=== PATIENT | female | born 1935 | race Caucasian/White ===

== ENCOUNTER 2016-11-17 07:35 | Inpatient (IN) | payer MEDICARE, OTHER ==
[~2016-11-17] VITALS: Ht 157.5 cm; Wt 85.8 kg
[2016-11-17 08:07] LABS: Basophils # (auto) 0 uL; Basophils % (auto) 0.8 % (0.0-2.0); CONDITION Y; Eosinophils # (auto) 0.2 uL; Eosinophils % (auto) 4.3 % (0.0-7.0); Hematocrit 41.2 % (36.0-46.0); Hemoglobin 14.1 g/dL (12.2-16.2); Lymphocytes # (auto) 1.6 uL; Lymphocytes % (auto) 35.4 % (10.0-50.0); Mean Corpuscular Hgb Conc. 34.2 g/dL (32.0-36.0); Mean Corpuscular Volume 90.7 fL (80.0-100.0); Mean Platelet Volume 7.6 fL (7.4-10.4); Monocytes # (auto) 0.3 uL; Monocytes % (auto) 7.6 % (0.0-12.0); Neutrophils # (auto) 2.3 uL; Neutrophils % (auto) 51.9 % (37.0-80.0); Platelet Count (auto) 297 10^3/uL (140-450); White Blood Cell 4.5 10^3/uL (4.4-10.8)
[2016-11-17 08:23] LABS: Albumin 3.4 g/dL (3.4-5.0); BUN/Creatinine Ratio 13.9; Calcium 8.3 mg/dL (8.5-10.1); Potassium 4.2 mmol/L (3.5-5.1)
[2016-11-17 08:26] LABS: Bilirubin, Total 0.5 mg/dL (0.2-1.0); Total Protein 7.4 g/dL (6.4-8.2)
[2016-11-17 08:45] LABS: INR 3.55 (0.9-1.15); Partial Thromboplastin Time 42.6 sec (22.64-33.71)
[2016-11-17 08:46] LABS: Prothrombin Time 39.2 sec (9.37-12.3)
[2016-11-17 10:40] LABS: B-Type Natriuretic Peptide 128.21 pg/mL (0-100)
[2016-11-17] MEDS ORDERED: LACTULOSE 20Gm/30ML SOLN PO PRN (10:45)
[2016-11-17] MEDS ORDERED: MORPHINE SULF INJ 2 MG/ML SYRINGE 1ML IV PRN ×2 (10:45→17:30)
[2016-11-17] MEDS ORDERED: NITROGLYCERIN 0.4 MG SL TAB SL PRN (10:45)
[2016-11-17] MEDS ORDERED: CLINDAMYCIN 600MG IV 50 ML IV ONE (10:45)
[2016-11-17] MEDS ORDERED: BACL10TA PO (10:52)
[2016-11-17] MEDS ORDERED: BACLOFEN 10 MG TAB PO ONE (11:30)
[2016-11-17 11:39] LABS: Cholesterol 198 mg/dL (< 200); HDL Cholesterol 54 mg/dL (40-59); LDL Cholesterol 120 mg/dL (< 100); Triglycerides 136 mg/dL (< 150)
[2016-11-17 12:15] VITALS: BP 140/70
[2016-11-17] MEDS ORDERED: TRAZ100T2 PO (12:29)
[2016-11-17] MEDS ORDERED: POTA10TA34 PO (12:29)
[2016-11-17] MEDS ORDERED: SUMA50TA2 PO (12:29)
[2016-11-17] MEDS ORDERED: WARF4TAB31 PO (12:29)
[2016-11-17] MEDS ORDERED: HYDR-4663 PO (12:29)
[2016-11-17] MEDS ORDERED: LEV100T PO (12:29)
[2016-11-17] MEDS ORDERED: PANT40TA2 PO (12:29)
[2016-11-17] MEDS ORDERED: FURO40TA PO (12:29)
[2016-11-17] MEDS ORDERED: PRA25T PO (12:29)
[2016-11-17 12:40] VITALS: BP 140/70
[2016-11-17 17:12] VITALS: BP 139/82
[2016-11-17] MEDS ORDERED: FUROSEMIDE 40 MG/4 ML VIAL IV ONE (17:15)
[2016-11-17] MEDS ORDERED: cefTRIAXone 1GM/50ML D5W 50 ML IV ONE (17:15)
[2016-11-17] MEDS ORDERED: POTASSIUM CHL 20 Meq TABLET PO ONE (17:15)
[2016-11-17] MEDS ORDERED: PANTOPRAZOLE 40 MG TAB PO ONE (17:30)
[2016-11-17] MEDS ORDERED: ONDANSETRON HCL 4 MG/2 ML VIAL IV PRN (17:30)
[2016-11-17] MEDS: CLINDAMYCIN 600MG IV 50 ML IV SCH (19:00)
[2016-11-17] MEDS: traZODone HCL 50 MG TAB PO SCH (21:35)
[2016-11-17] MEDS: PRAMIPEXOLE DIHYDROCHLORIDE MO 0.25 MG TAB PO SCH (21:36)
[2016-11-17] MEDS: diphenhdrAMINE HCL 25 MG CAP PO PRN (21:36)
[2016-11-17] MEDS: HYDROCORTISONE 2.5% TOPICAL CREAM 30GM TUBE TOP SCH (21:36)
[2016-11-17 22:26] VITALS: BP 125/54
[2016-11-18] MEDS: CLINDAMYCIN 600MG IV 50 ML IV SCH ×3 (03:15→19:00)
[2016-11-18 05:09] VITALS: BP 106/57
[2016-11-18] MEDS: HYDROcodone-ACET 5/325MG TAB PO PRN (05:52)
[2016-11-18] MEDS: LEVOTHYROXINE SODIUM 88 MCG TAB PO SCH (06:36)
[2016-11-18 07:17] LABS: Basophils # (auto) 0 uL; Basophils % (auto) 0.8 % (0.0-2.0); CONDITION Y; Eosinophils # (auto) 0.3 uL; Eosinophils % (auto) 5.3 % (0.0-7.0); Hematocrit 42.2 % (36.0-46.0); Hemoglobin 14.5 g/dL (12.2-16.2); Lymphocytes # (auto) 2.1 uL; Lymphocytes % (auto) 43.3 % (10.0-50.0); Mean Corpuscular Hemoglobin 31.3 pg (28.0-32.0); Mean Corpuscular Hgb Conc. 34.3 g/dL (32.0-36.0); Mean Corpuscular Volume 91.2 fL (80.0-100.0); Mean Platelet Volume 8.2 fL (7.4-10.4); Monocytes # (auto) 0.5 uL; Monocytes % (auto) 9.4 % (0.0-12.0); Neutrophils % (auto) 41.2 % (37.0-80.0); Platelet Count (auto) 310 10^3/uL (140-450); Red Cell Distribution Width 15.2 % (11.6-16.0); White Blood Cell 4.9 10^3/uL (4.4-10.8)
[2016-11-18 07:29] LABS: INR 2.89 (0.9-1.15); Partial Thromboplastin Time 41.5 sec (22.64-33.71)
[2016-11-18 07:32] LABS: Prothrombin Time 31.8 sec (9.37-12.3)
[2016-11-18 07:56] LABS: BUN/Creatinine Ratio 19.5; Potassium 4.5 mmol/L (3.5-5.1)
[2016-11-18 08:30] VITALS: BP 123/57
[2016-11-18 09:06] LABS: Urine RBC None Seen /hpf (0 - 4)
[2016-11-18 09:20] LABS: Urine Bilirubin Negative (Negative); Urine Blood Negative /uL (Negative); Urine Color Yellow (Yellow); Urine Glucose Normal (Normal); Urine Ketone Negative (Negative); Urine Nitrite Negative (Negative); Urine Squamous Epithelial Cell FEW /hpf (<5); Urine Urobilinogen Normal (Negative)
[2016-11-18] MEDS: cefTRIAXone 1GM/50ML D5W 50 ML IV SCH (09:55)
[2016-11-18] MEDS: POTASSIUM CHL 20 Meq TABLET PO SCH (09:56)
[2016-11-18] MEDS: PANTOPRAZOLE 40 MG TAB PO SCH (09:56)
[2016-11-18] MEDS: BACLOFEN 10 MG TAB PO SCH (09:57)
[2016-11-18] MEDS: HYDROCORTISONE 2.5% TOPICAL CREAM 30GM TUBE TOP SCH ×2 (09:58→21:59)
[2016-11-18] MEDS ORDERED: FUROSEMIDE 40 MG TAB PO SCH (10:00)
[2016-11-18 12:30] VITALS: BP 108/58
[2016-11-18 17:34] VITALS: BP 151/96
[2016-11-18 21:49] VITALS: BP 135/60
[2016-11-18] MEDS: traZODone HCL 50 MG TAB PO SCH (21:58)
[2016-11-18] MEDS: PRAMIPEXOLE DIHYDROCHLORIDE MO 0.25 MG TAB PO SCH (21:59)
[2016-11-19] MEDS: diphenhdrAMINE HCL 25 MG CAP PO PRN ×2 (01:51→23:26)
[2016-11-19] MEDS: CLINDAMYCIN 600MG IV 50 ML IV SCH ×3 (02:38→18:30)
[2016-11-19 05:00] VITALS: BP 145/58
[2016-11-19 06:22] LABS: INR 2.14 (0.9-1.15); Partial Thromboplastin Time 36.3 sec (22.64-33.71); Prothrombin Time 23.5 sec (9.37-12.3)
[2016-11-19] MEDS: LEVOTHYROXINE SODIUM 88 MCG TAB PO SCH (06:48)
[2016-11-19 08:00] VITALS: BP 176/66
[2016-11-19] MEDS: cefTRIAXone 1GM/50ML D5W 50 ML IV SCH (08:48)
[2016-11-19 09:00] VITALS: BP 176/66
[2016-11-19] MEDS: PANTOPRAZOLE 40 MG TAB PO SCH (09:20)
[2016-11-19] MEDS: HYDROCORTISONE 2.5% TOPICAL CREAM 30GM TUBE TOP SCH ×2 (09:20→22:22)
[2016-11-19] MEDS: BACLOFEN 10 MG TAB PO SCH (09:20)
[2016-11-19] MEDS: POTASSIUM CHL 20 Meq TABLET PO SCH (09:20)
[2016-11-19 13:00] VITALS: BP 127/54
[2016-11-19 17:00] VITALS: BP 102/58
[2016-11-19] MEDS ORDERED: WARFARIN SODIUM 2.5 MG TAB PO ONE (17:00)
[2016-11-19 22:00] VITALS: BP 138/57
[2016-11-19] MEDS: HYDROcodone-ACET 5/325MG TAB PO PRN (22:22)
[2016-11-19] MEDS: PRAMIPEXOLE DIHYDROCHLORIDE MO 0.25 MG TAB PO SCH (22:22)
[2016-11-19] MEDS: traZODone HCL 50 MG TAB PO SCH (22:22)
[2016-11-20] MEDS: CLINDAMYCIN 600MG IV 50 ML IV SCH ×2 (03:20→10:32)
[2016-11-20 05:00] VITALS: BP 131/64
[2016-11-20] MEDS: LEVOTHYROXINE SODIUM 88 MCG TAB PO SCH (06:38)
[2016-11-20] MEDS: HYDROcodone-ACET 5/325MG TAB PO PRN (06:39)
[2016-11-20 07:12] LABS: INR 1.58 (0.9-1.15); Partial Thromboplastin Time 32.2 sec (22.64-33.71)
[2016-11-20 07:19] LABS: Prothrombin Time 17.3 sec (9.37-12.3)
[2016-11-20 08:00] VITALS: BP 131/64
[2016-11-20] MEDS: cefTRIAXone 1GM/50ML D5W 50 ML IV SCH (08:17)
[2016-11-20 09:00] VITALS: BP 130/59
[2016-11-20] MEDS: POTASSIUM CHL 20 Meq TABLET PO SCH (09:22)
[2016-11-20] MEDS: PANTOPRAZOLE 40 MG TAB PO SCH (09:22)
[2016-11-20] MEDS: HYDROCORTISONE 2.5% TOPICAL CREAM 30GM TUBE TOP SCH (09:23)
[2016-11-20] MEDS: BACLOFEN 10 MG TAB PO SCH (09:23)
[2016-11-20 13:00] VITALS: BP 134/69
[2016-11-20 15:01] VITALS: BP 130/59
[2016-11-20] MEDS ORDERED: WARFARIN SODIUM 5 MG TAB PO ONE (17:00)
== END 2016-11-20 16:30 | disposition home health service (06) | DRG 603 ==
LOC: ER 07:35 → TELE 07:36 → TELE-E-ADS 11:55 → TELE-WESTW 16:34
PROVIDERS: ADMIT Nurse Practitioner Family; ATTEND Internal Medicine
DX: L03.115 Cellulitis of right lower limb (principal); L03.116 Cellulitis of left lower limb; G25.81 Restless legs syndrome; E03.9 Hypothyroidism, unspecified; E78.5 Hyperlipidemia, unspecified; I70.0 Atherosclerosis of aorta; R79.1 Abnormal coagulation profile; T45.515A Adverse effect of anticoagulants, initial encounter; Z86.718 Personal history of other venous thrombosis and embolism; Y92.89 Other specified places as the place of occurrence of the external cause; I25.2 Old myocardial infarction; Z90.49 Acquired absence of other specified parts of digestive tract
CPT/HCPCS: 36415; 71010; 80048; 80053; 80061; 81001; 83880; 84443; 84484; 85025; 85379; 85610; 85730; 87040; 93005; 93306; 93970; 96365; J0696; J3490